=== PATIENT | female | born 1955 | race Caucasian/White ===

== ENCOUNTER 2023-05-07 09:09 | Outpatient (REF) | payer MEDICARE, OTHER, SELFPAY ==
--- NOTE | ~2023-05-07 | CT_ITS ---
EXAMINATION: CT SINUS WITHOUT CONTRAST CLINICAL INFORMATION: Polyp of nasal cavity. COMPARISON: CT sinuses on 09/19/2018. TECHNIQUE: Multidetector CT acquisitions of the maxillofacial region without intravenous contrast. This CT examination was performed using dose optimization techniques as appropriate, variously including the following: *Automated exposure control *Adjustment of mA and/or kV according to patient size (this includes techniques or standardized protocols for targeted exams where dose is matched to indication/reason for exam; i.e. extremities or head) *Use of iterative reconstruction technique DLP: 105 mGy-cm FINDINGS: The right frontal sinus is aplastic, normal variant. The left frontal sinus demonstrates moderate focal thickening without osseous hypertrophy or dehiscence of the sinus finley. The left frontoethmoidal recess is opacified. The ethmoid air cells demonstrate moderate mucosal thickening, left greater than right without osseous hypertrophy or dehiscence of the sinus finley. The anterior ethmoidal arteries are protected. There is no pneumatization of the monster kiki. The olfactory fossae are symmetric in depth. The sphenoid sinuses are clear. The intersphenoid septum is directed to the right without encroaching on the carotid canal. The bilateral sphenoethmoidal recesses are patent. The maxillary sinuses demonstrate [id number]-[id number] mucosal thickening, worsened from prior with multifocal thinning/dehiscence of the posterior sinus finley bilaterally. The ostiomeatal units are patent on the left and opacified on the right. There is no Rena cell or abnormal elongation of the infundibulum bilaterally. The maxilla demonstrates no periapical lucencies extending into the floor of the maxillary sinuses. The nasal septum is deviated to the left without bony spur. The choana are patent bilaterally. There is no franklin bullosa. The lamina papyracea are unremarkable. The orbits are also unremarkable. Degenerative changes at the temporomandibular joints bilaterally. Atherosclerotic calcifications of the bilateral carotid siphons. The visualized portions of the brain are unremarkable. CT/CT sinus wo IV con IMPRESSION: -[id number] paranasal sinus disease, worsened from prior with multifocal thinning/dehiscence of the maxillary sinus posterior finley bilaterally. There is also opacification of the left frontoethmoidal recess and right ostiomeatal unit. -Leftward nasal septal deviation. -Bilateral temporomandibular joints osteoarthrosis.
== END 2023-05-07 09:10 | disposition home or self-care (01) ==
LOC: HO.CT 09:09
PROVIDERS: PCP Physician Assistant; Visit Provider Otolaryngology
DX: J33.0 Polyp of nasal cavity (principal); I34.2 Nonrheumatic mitral (valve) stenosis
CPT/HCPCS: 70486